=== PATIENT | female | born 1985 | race American Indian/Alaskan Native ===

== ENCOUNTER → 2017-03-04 | Outpatient (CLI) | payer BC ==
[~2017-03-04] MED LIST: IRON PO; MULTTAB PO; VITAMIN B12 PO
[2017-03-08 07:21] LABS: CHLAMYDIA TRACH RNA*** NOT DETECTED (NOT DETECTED); GC (NEIS GONORRHOEAE)RNA** NOT DETECTED (NOT DETECTED)
== END | disposition home or self-care (01) ==
LOC: C.LABSPEC 13:24
PROVIDERS: ATTEND Obstetrics & Gynecology
DX: Z01.419 Encounter for gynecological examination (general) (routine) without abnormal findings (principal)

== ENCOUNTER → 2017-03-04 | Outpatient (CLI) | payer BC | END | disposition home or self-care (01) | LOC: C.PAPS 15:33 | PROVIDERS: ATTEND Obstetrics & Gynecology | DX: Z01.419 Encounter for gynecological examination (general) (routine) without abnormal findings (principal) ==

== ENCOUNTER 2017-03-31 20:17 | Emergency (ER) | payer BC ==
[~2017-03-31] VITALS: Ht 162.6 cm; Wt 132.1 kg
[2017-03-31 20:21] VITALS: TEMP 37.2; Ht 162.6 cm; Wt 132.1 kg
[2017-03-31] MEDS ORDERED: ALBUT/IPRATROP 3MG/0.5MG NEB 3 ML VIAL ONE ×2 (20:28→21:47)
[2017-03-31] MEDS ORDERED: HYDROCODONE/HOMATROPINE SYRUP 5MG/1.5MG 5ML UDP PO STA (20:34)
[2017-03-31] MEDS ORDERED: ALBINS/ NEB ×2 (21:02→21:32)
[2017-03-31] MEDS ORDERED: PRVHFAIN INH ×2 (21:02→21:32)
--- NOTE | 2017-03-31 21:14 | DIAGNOSTIC IMAGING REPORT ---
TWO VIEW CHEST CLINICAL HISTORY: Productive cough. Asthma. FINDINGS: PA and lateral chest radiographs are compared to study dated 04/19/2015. The cardiomediastinal silhouette is unremarkable. There is mild elevation of the right hemidiaphragm. The lungs and pleural spaces are clear. There is no pneumothorax. The bony thorax appears intact. IMPRESSION: No active disease in the chest. Electronically signed by: Nghia Tracy M.D. 03/31/2017 9:13 PM Dictated Date/Time: 03/31/2017 9:13 PM
[2017-03-31 21:20] VITALS: BP 115/76; PULSE 72; O2SAT 98
[2017-03-31] MEDS ORDERED: HYDR5SYP11 PO (21:32)
[2017-03-31] MEDS ORDERED: PRED50TA PO (21:32)
[2017-03-31] MEDS ORDERED: AZITTAB PO (21:32)
--- NOTE | 2017-03-31 21:34 | EMERGENCY ROOM VISIT NOTE ---
ED Visit Note First contact with patient: 20:26 CHIEF COMPLAINT: Cough and shortness of breath 2-3 days HISTORY OF PRESENT ILLNESS: Patient is a 31-year-old female who presents the emergency department accompanied by her fianc for evaluation of a productive cough and shortness of breath. She reports that her symptoms started about a week and half ago, when she developed a cold. She noticed ear pressure, sinus and nasal congestion and a scratchy throat. She subsequently developed a cough. She was seen at a [facility] clinic on the shortly after her symptoms started. Conservative care measures were discussed. Patient reports that she began to develop a harsh, productive cough in the last week. She notes the cough is productive of green sputum. She has albuterol nebulizers which she was doing 2-3 times a day, but ran out of the nebulizers about 2 days ago. She does have a Ventolin inhaler which she has been using, but her symptoms are not improving. She does not have an appointment with her primary care doctor until mid April. Patient reports that she has been ill like this in the past. She has never been hospitalized or intubated for her asthma. She has not tried using any additional medications for her symptoms. REVIEW OF SYSTEMS: Review of systems as per HPI. All other systems reviewed were negative. 10 systems reviewed. PMH: Electronic medical records are reviewed and summarized as above/below. See Problem List. SOCIAL HISTORY: Patient lives at home with her significant other. Nonsmoker. She is employed. PHYSICAL EXAM: Vital Signs: Reviewed Nurse's notes. MENTAL STATUS: Patient is a well-appearing 31-year-old female who is awake and alert and in no acute distress. Vital signs are stable. She does have a harsh cough noted, no conversational dyspnea noted. HEAD: Atraumatic, without temporal or scalp tenderness. EYES: PERRL, EOMI, no discharge or injection. EARS: Tympanic membranes intact, not inflamed, have normal contour. External canals clear. NOSE: Nares patent, turbinates moist without rhinorrhea. MOUTH: Mucous membranes moist, no lesions, tongue and gums appear normal. THROAT: No pharyngeal injection, exudates, or tonsillar hypertrophy. Airway is patent. NECK: Supple, nontender, no lymphadenopathy. HEART: Regular rate and rhythm without murmurs, ectopy, gallops, or rubs. LUNGS: Clear to auscultation and breath sounds equal, no wheezes, rales, or rhonchi. SKIN: Normal. NEUROLOGICAL: Sensory and motor functions grossly intact. Normal gait. EMERGENCY DEPARTMENT COURSE: Patient was given a DuoNeb treatment, prednisone 60 mg orally and Hycodan 10 mL orally. Chest x-ray was obtained and was clear. Patient was reassessed, and had significant improvement in her symptoms. Her shortness of breath had resolved and cough was much improved. The patient has had an upper respiratory illness for about a week which appears to have exacerbated her asthma. She has recently run out of her home medications. On exam, she does have a persistent, harsh cough however no adventitious sounds, and she symptomatically responded well to a nebulizer treatment and Hycodan. She has been intermittently wheezing which she states has been controlled with her inhaler. She is agreeable to a short course of prednisone. She was given refills for her Proventil vials and for her Ventolin inhaler. She was given a prescription for Hycodan to use as needed for cough, and then was also given a prescription for a Z-German if her symptoms do not appear to be clearing within the next 5-7 days, she can fill and take this. Differential diagnoses include URI, other viral illness including influenza, bronchitis, pneumonia, asthma exacerbation, among others. Medication reconciliation: I attest that I have personally reviewed the patient' s current medication list. Blood pressure screening : Patient was found to have normal blood pressure on screening and does not require follow-up. TWO VIEW CHEST CLINICAL HISTORY: Productive cough. Asthma. FINDINGS: PA and lateral chest radiographs are compared to study dated 04/19/2015. The cardiomediastinal silhouette is unremarkable. There is mild elevation of the right hemidiaphragm. The lungs and pleural spaces are clear. There is no pneumothorax. The bony thorax appears intact. IMPRESSION: No active disease in the chest. Problem List Medical Problems: (1) Ankle sprain Status: Resolved (2) Bronchitis Status: Resolved (3) Bronchitis with bronchospasm Status: Resolved (4) Bronchospasm Status: Resolved (5) Lupus Status: Chronic (6) Pneumonia Status: Chronic (7) Unspecified Asthma, Uncomplicated Status: Chronic Current/Historical Medications Scheduled Azithromycin (Zithromax Z-German), 0 PO UD Prednisone (Prednisone), 50 MG PO DAILY Scheduled PRN Albuterol (Ventolin Hfa), 2 PUFFS INH Q4 PRN for SOB/Wheezing Albuterol Sulf (Proventil 0.083% 2.5MG/3ML), 3 ML NEB Q4 PRN for SOB/Wheezing Hydrocodone W/ Homatropine (Hycodan 5/1.5MG 5 Ml), 10 ML PO Q4H PRN for Cough Allergies Coded Allergies: No Known Allergies (Unverified , 07/22/14) Vital Signs Date Time Temp Pulse Resp B/P (MAP) Pulse Ox O2 Delivery O2 Flow Rate FiO2 03/31/17 21:20 72 16 115/76 98 Room Air 03/31/17 20:21 37.2 108 18 132/39 92 Room Air Medications Administered Medications (Trade) Dose Ordered Sig/Ary Route Start Time Stop Time Status Last Admin Dose Admin Albuterol/ Ipratropium (Duoneb) 3 ml STK-MED ONCE .ROUTE 03/31/17 20:28 03/31/17 20:29 DC 03/31/17 20:31 3 ML Prednisone (PredniSONE TAB) 60 mg NOW STAT PO 03/31/17 20:34 03/31/17 20:35 DC 03/31/17 20:39 60 MG Hydrocodone Bit/ Homatropine Methylb (Hycodan Syrup) 10 ml NOW STAT PO 03/31/17 20:34 03/31/17 20:35 DC 03/31/17 20:39 10 ML Departure Information Impression Primary Impression: URI (upper respiratory infection) Additional Impression: Asthmatic bronchitis Prescriptions Azithromycin (ZITHROMAX Z-GERMAN) 250 Mg Tab 0 PO UD, #1 PKT 2 TABS DAY 1, THEN 1 TAB DAILY FOR 4 DAYS Prov: Nubia Garcia PA 03/31/17 Hydrocodone W/ Homatropine (HYCODAN 5/1.5MG 5 ML) 1 Syp Syp 10 ML PO Q4H Y for Cough, #200 ML For Initial Treatment Prov: Nubia Garcia PA 03/31/17 Prednisone (Prednisone) 50 Mg Tab 50 MG PO DAILY for 5 Days, #5 TAB Prov: Nubia Garcia PA 03/31/17 Albuterol (Ventolin Hfa) 60 Puffs/5400 Mcg Aers 2 PUFFS INH Q4 Y for SOB/Wheezing, #1 INHALER Prov: Nubia Garcia PA 03/31/17 Albuterol Sulf (PROVENTIL 0.083% 2.5MG/3ML) 2.5 Mg/3 Ml Nebu 3 ML NEB Q4 Y for SOB/Wheezing, #1 BOX Prov: Nubia Garcia PA 03/31/17 Referrals Adelaida Bagley M.D. (PCP) Patient Instructions [facility] Additional Instructions DO NOT drive, drink alcohol, operate machinery, or perform dangerous activities today. You were given medications in the ER that can affect your ability to safely function or operate a vehicle. Continue Proventil nebulizer treatments every 4 hours while awake for the next 5 -7 days, may switch or interchange with Ventolin inhaler 2 puffs every 4 hours, then resume using as needed. Prednisone 50mg: Once daily until the prescription is finished. It is best to take this earlier in the day as some patients note occasional difficulty falling asleep when taken in the late evening. Ibuprofen(Motrin, Advil) may be used for fever or pain. Use 600mg every six hours as needed. Take with food. Avoid using more than 2400mg in a 24 hour period. Do not use 2400mg per day for more than three consecutive days without physician direction. Prolonged inappropriate use can lead to stomach upset or ulcers. This is available over the counter and typically comes in 200mg tablets. (AND/OR) Acetaminophen(Tylenol) may be used for fever or pain. Use 1000mg every eight hours as needed. Avoid using more than 3000mg in a 24 hour period. This is available over the counter. Hycodan cough syrup: use 5-10 mL's every 46 hours only as needed for severe cough. It is best for use at night since it will cause sedation. This is a narcotic medication. Avoid alcohol, operating machinery or dangerous equipment , working on ladders or roofs, DRIVING, important decision making, or situations where being under the influence may be dangerous. It is recommended to use an [id number]-[id number] stool softener such as Colace, 100mg twice daily while taking this medication to avoid constipation. Read all the package inserts or medication information paperwork provided. If you have any questions or concerns call your primary provider, pharmacist or the ER for assistance. Rest and drink plenty of fluids. Avoid strenuous activity until your symptoms resolve and your breathing returns to normal. Continue current medications. Return to the ER for chest pain, difficulty breathing, persistent fevers, vomiting, worsening of your condition, or as needed. Follow up with your primary care physician as scheduled. If your symptoms have not improved in the next 5-7 days, fill and take the prescription for Azithromycin(Zithromax) 250mg: Take once daily as directed for 5 days. All antibiotics can cause diarrhea. If this occurs and you feel worse or it does not resolve in 1-2 days follow up with your doctor or return to the Emergency Department as this could be signs of serious underlying problems. Any medication can cause an allergic reaction, stop the pills immediately and return to the ER for rash, hives, breathing difficulties, or swelling. Problem Qualifiers
== END 2017-03-31 21:50 | disposition home or self-care (01) ==
LOC: C.EDB 20:18
DX: J06.9 Acute upper respiratory infection, unspecified (principal); J45.909 Unspecified asthma, uncomplicated; L93.0 Discoid lupus erythematosus; Z79.899 Other long term (current) drug therapy

== ENCOUNTER → 2017-04-20 | Outpatient (CLI) | payer OTHER ==
[~2017-04-20] MED LIST changes: +ALBINS/ NEB; -IRON PO; -MULTTAB PO; +PRVHFAIN INH; -VITAMIN B12 PO
--- NOTE | 2017-04-20 12:46 | DIAGNOSTIC IMAGING REPORT ---
MRI OF THE BRAIN WITHOUT CONTRAST CLINICAL HISTORY: Pineal gland cyst COMPARISON STUDY: 12/05/2015 FINDINGS: Sagittal T1, axial diffusion, proton density and T2 weighted axial, coronal FLAIR, and axial T1-weighted images were acquired. There is a stable 14 mm CSF intensity lesion, located adjacent to the posterior aspect of the third ventricle, and abutting or arising from the pineal gland. This has benign characteristics. Axial diffusion-weighted images reveal no evidence of acute or subacute infarction. There is no evidence of ventricular dilatation. Proton density T2-weighted and FLAIR images reveal no significant intraparenchymal signal abnormalities. There are no abnormal flow voids. IMPRESSION: 1. No change from the preceding study. 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 This is not felt to be of acute clinical significance. 2. Otherwise normal MRI of the brain Electronically signed by: Crow Riddle M.D. 04/20/2017 12:44 PM Dictated Date/Time: 04/20/2017 12:36 PM
== END | disposition home or self-care (01) ==
LOC: C.MRI 10:50
PROVIDERS: ATTEND Family Medicine
DX: E34.8 Other specified endocrine disorders (principal)

== ENCOUNTER → 2017-06-29 | Outpatient (CLI) | payer OTHER ==
[~2017-06-29] VITALS: Ht 162.6 cm; Wt 137.2 kg
[2017-06-29 12:47] VITALS: BP 113/65; PULSE 92; Ht 162.6 cm; Wt 137.2 kg
== END | disposition home or self-care (01) ==
LOC: C.NEUR 12:32
PROVIDERS: ATTEND Physician Assistant Medical
DX: R06.81 Apnea, not elsewhere classified (principal); R06.83 Snoring; R53.83 Other fatigue; E66.01 Morbid (severe) obesity due to excess calories; J45.909 Unspecified asthma, uncomplicated; R42 Dizziness and giddiness; J30.2 Other seasonal allergic rhinitis

== ENCOUNTER → 2017-07-31 | Outpatient (CLI) | payer OTHER ==
--- NOTE | 2017-08-01 05:35 | PAP/PSG TECHNICIAN REPORT ---
[facility] Drop Clipper Polysomnogram Report Study name: None Report date: 08/01/2017 Study date: 07/31/2017 Referring Physician: MALKA APONTE M.D. Name: TEMO MENDOZA Interpreting Physician: Nolberto Watson M.D. Date of : 1985 Drop Clipper: Dorita Morales, PSGT. Sex: Female Age: 31 StudyType: PSG Weight: 301 lbs Height: 31 years, Height 5' 4" Neck Circum:16 inches BMI: 51.66 Medications: Advair, Albuterol, Norethindrone, Vit-D3, Venolin, womans multi-vit. Patient History 31 year old female presents for a diagnostic sleep study, she has been told she stops breathing during sleep, snoring and daytime fatigue.Ess = 15, Neck = 16 inches. Parameters Monitored NPSG: E1-M2, E2-M1, Fp1-M2, Fp2-M1, F3-M2, F4-M2, F4-M1, C3-M2, C4-M2, C4-M1, O1-M2, O2-M2, O2-M1, T3-M2, T4-M1, P3-M2, P4-M1, CHIN1, CHIN2, HR, EKG, Legs, PFLOW, SNOR, FLOW, CFLOW, Tidal Volume, THOR, ABDO, SpO2, PLTH, CPRESS, ETCO2 Wave, ETCO2, pH Sleep Architecture Sleep Stages Time at Lights Off 11:03:20 PM STAGES Time (min.) TST (%) Time at Lights On 5:27:20 AM Wake 23.0 -- Total Recording Time (TRT) 384.50 min. N1 12.5 3 Total Sleep Period (TSP) 378.0 min. N2 195.5 54 Total Sleep Time (TST) 361.0min. N3 63.5 18 Awake Time 23.5 min. REM 89.5 25 Wake after Sleep Onset 18.0 min. Sleep Efficiency (SE) 94 % Sleep Onset Latency (OSMIN) 5.0 min. Number of Stage 1 Shifts None Awakenings 11 Stage Changes 47 Number of REM periods 4 REM 89.5 25 REM Latency 62.5 min. NREM 271.5 75 Body Position Analysis Supine Right Left Side Prone Vertical Total Sleep Time (min.) 15.6 301.6 50.1 351.76 0.0 0.0 Total Sleep Time (%) 3% 84% 14% 97 0% N/A% Total Sleep Time REM (min.) 0.0 89.5 0.0 None 0.0 0.0 Total Sleep Time NREM (min.) 9.2 212.1 50.1 None 0.0 0.0 Intermittent Wake (min.) 6.3 10.4 6.3 None 0.0 0.0 Total Sleep Period (%) 4% None None None None None Arousals Myoclonus (PLM) * Events Count Index Events Count Index Spontaneous 42 7 Events Awake (PLMW) 0 0.0 Respiratory 3 0.5 Events Asleep w/ Arousal (PLMA) 0 0.0 PLM 0 0 Events Asleep w/o Arousal (PLMS) 54 9.0 Snoring 9 1 Total Asleep 54 9.0 Total 54 9 Total 54 8 Respiratory Analysis * CA OA MA CH H RERA Total Count 0 0 0 0 30 0 30 Index 0.0 0.0 0.0 0 5.0 0 5.0 Mean Duration 0.0 0.0 0.0 0.00 15.3 0.0 15.3 Longest Duration 0.0 0.0 0.0 0.00 0.0 0.0 32.0 Respiratory Event Summary Total Supine ~Supine Right Left Prone REM NREM Apneas Count 0 0 0 0 0 N/A 0 0 Index 0.0 0 0 0.0 0.0 N/A 0 0 Hypopneas (4% Desat) Count 30 0 30 28 2 N/A 12 18 Index 5.0 0.0 5 5.6 2.4 N/A 8.0 4.0 Apneas & All Hypopneas Count 30 0 30 28 2 N/A 12 18 Index 5.0 0 5 6 2 N/A 8.0 4.0 Respiratory Events (Employment Trainer+All Hyp+RERA) Count 30 0 30 28 2 N/A 12 18 Index 5.0 0 5 5.6 2.4 N/A 8.0 4.0 Respiratory Related Arousal Count 3 0 3 3 0 N/A 3 0 Index 0.5 0 1 1 0 N/A 2 0 Snoring Analysis Supine Right Left Prone REM NREM Total Snore duration 20.1 min Snores count 2 883 46 N/A 69 862 931 Snore mean duration 1.3 Sec Snores index 13 176 55 N/A 46.3 190.5 154.7 TST with snoring (%) 5.6% Desaturation Event Summary: Minimum %SpO2 Event Count Mean/Min/Max Duration(sec.) Desaturation Index % Time In Bed > 90 90 23.5 / 4.8 / 58.3 14.9 95.3 86 - 90 0 N/A 0.0 4.7 81 - 85 0 N/A 0.0 0.0 76 - 80 0 N/A 0.0 0.0 71 - 75 0 N/A 0.0 0.0 66 - 70 0 N/A 0.0 0.0 61 - 65 0 N/A 0.0 0.0 56 - 60 0 N/A 0.0 0.0 51 - 55 0 N/A 0.0 0.0 < 50 0 N/A 0.0 0.0 Total REM NREM Awake <50% 0.0 min. 0.0 min. 0.0 min. 0.0 min. 51 - 60% 0.0 min. 0.0 min. 0.0 min. 0.0 min. 61 - 70% 0.0 min. 0.0 min. 0.0 min. 0.0 min. 71 - 80% 0.0 min. 0.0 min. 0.0 min. 0.0 min. 81 - 90% 18.0 min. 4.7 min. 11.2 min. 2.1 min. 91 - 100% 362.2 min. 84.8 min. 258.6 min. 18.8 min. Average 94 94 94 94 Minimum SpO2 85 85 88 87 Desaturation Event Index 14.1 17.4 14.1 0.0 # Desat. Events below 89% 4 3 1 N/A Time(%) with Saturation below 89% 0.7 0.3 0.2 0.2 Time(min.) with Saturation below 89% 2.6 1.2 0.9 0.6 Time (mins) REM (mins) NREM (mins) % of TST SpO2 Below 90% 31 8 N23 1.8 SpO2 Below 88% 1 0 0 0 Heart Rate Analysis Min (bpm) Max (bpm) Average (bpm) Awake 67 108 89 NREM 72 104 86 REM 74 99 87 Overall 72 104 87 Supplemental O2 Values Minimum O2 level: None Value Start Time End Time Drop Clipper Comments . PSG Study MS. Mendoza slept in the right, left, supine positions. No cardiac arrhythmia or PLM's noted. No bruxism noted. Snoring was noted and scored as a 2 on a scale of 1 through 5. (0=no snoring, 5=snoring loud enough to be heard through a closed door or down the [address] way) Ms. Mendoza awoke to use the restroom zero times during the night. Ms. Mendoza stated, I did not sleep as well as I do when I am in my own bed. The final report will be interpreted and signed by a sleep physician. The completed physician report will then be placed in the patient medical record Therapy (cm H2O) 0 TIB (min.) 384.0 TST (min.) 361.0 Sleep Onset (min.) 5.0 REM Onset From Sleep (min.) 62.5 Sleep Efficiency % 94 Wakefulness (%) 6 Wakefulness (min.) 23.5 NREM 1 (%) 3 NREM 1 (min.) 12.5 NREM 2 (%) 54 NREM 2 (min.) 195.5 NREM 3 (%) 18 NREM 3 (min.) 63.5 REM (%) 25 REM (min.) 89.5 # Arousals 54 Arousal Index 9 # Snore 931 Snore Index 154.7 AHI 5.0 AHI Supine 0 AHI Non-Supine 5 NREM AHI 4.0 REM AHI 8.0 RDI 5.0 # Obstructive Apnea 0 # Central Apnea 0 # Mixed Apnea 0 # Hypopneas 30 RERAs 0 Total Respiratory Events 31 Time Below SpO2 89% (min.) 2.0 Mean NREM SpO2 (%) 94 Mean REM SpO2 (%) 94 Mean Sleep SpO2 (%) 94 Min NREM SpO2 (%) 88 Min REM SpO2 (%) 85 Position Supine (min.) 15.6 Position Non-supine (min.) 351.8 LM Index Sleep 9.0 LM Index NREM 11.0 LM Index REM 2.7 Mean Heart Rate (bpm) 87 Min Heart Rate (bpm) 72
--- NOTE | 2017-08-03 10:10 | POLYSOMNOGRAPH REPORT ---
CLINICAL DATA: A 31-year-old female with a BMI of 51.66 referred by Amelia Voss and myself for a sleep study. She has been told she stops breathing at night and has snoring and daytime fatigue. Her [place] sleepiness score is 15/24. SLEEP ARCHITECTURE: Total sleep period was 378 minutes. Total sleep time was 361 minutes divided between 271.5 minutes of non-REM sleep and 89.5 minutes of REM sleep. Sleep latency was 5 minutes. REM latency was 62.5 minutes. Sleep efficiency was 94%. Wake after sleep onset was 18 minutes. Sleep consisted of stage N1 3%, stage N2 54%, stage N3 18%, and REM 25%. AROUSAL DATA: 54 arousals were recorded for an index of 9 per hour. 42 were spontaneous. PLM DATA: 54 limb movements during sleep were noted for an index of 9 per hour with no arousals. RESPIRATORY DATA: Borderline sleep apnea/hypopnea was noted. The AHI was 5. There were 30 hypopneic episodes with a mean duration of 15.3 seconds. OXIMETRY DATA: Transient hypoxemia was seen. Oxygen bettina was 85% during REM sleep. Mean saturation was 94%. Time below 88% was 1 minute. EKG: Heart rates ranged from 72 to 104 beats per minute. No arrhythmias were noted. MOUNTER SMOKING PIPE'S COMMENTS: The patient slept in the right, left, and supine position. Snoring was mild, rated 2 on a scale of 1-5. IMPRESSION: Borderline sleep apnea/hypopnea with an AHI of 5. RECOMMENDATIONS: The patient may benefit from weight loss, use of an oral appliance, or possibly CPAP usage. Clinical correlation is needed. FENG
== END | disposition home or self-care (01) ==
LOC: C.NEUR 21:00
PROVIDERS: ATTEND Physician Assistant Medical
DX: G47.33 Obstructive sleep apnea (adult) (pediatric) (principal); E66.01 Morbid (severe) obesity due to excess calories; R06.83 Snoring

== ENCOUNTER 2021-10-22 10:06 | Inpatient (IN) ==
--- NOTE | 2021-10-22 10:49 | History & Physical Report ---
Date of Service October 22, 2021 Assessment & Plan (1) Gestational diabetes mellitus (GDM) affecting , antepartum: (2) GBS (group B Streptococcus carrier), +RV culture, currently : (3) : Plan Admit to L&D for induction. Irregular contractions. NST nonreactive, more accelerations or decelerations, continue to monitor. GBS+, start penicillin. will place cervical balloon and start pitocin augmentation of labor. epidural when requested anticipate vaginal History of Present Illness Primary Care Provider: Adelaida Cruz is a 36 y/o female currently at 39 5/7 with an YINA 10/24/21 as determined by LMP who is here after OP appointment with nonreactive nst. BPP was 8/8 but DVP is 2.1 cm. Her was complicated by GDM, AMA, and GBS+. Irregular contractions; + movement; Minimal fluid loss- increased mucus since Wednesday; no bloody show External FHT and external uterine monitors used; Category 2 tracing; mod FHT variability. Had regular appointments with OB. Labs: (03/17/21) Blood type: O+ Antibody screen: Neg Hg: pending (today) Hct: pending (today) WBC: pending (today) Plt: pending (today) Rubella: Immune VDRL/RPR: Nonreactive Gonorrhea: Neg Chlamydia: Neg HIV: Neg HbSAg: Neg GBS: + Other screens: cf/sma/cfDNA low risk--smp Allergies Allergy/AdvReac Type Severity Reaction Status Date / Time No Known Allergies Allergy Verified 10/22/21 08:36 No Known Drug Allergies Allergy Unknown Unknown Uncoded 10/22/21 08:36 Home Medications Medication Instructions Recorded Confirmed Type prenat.vits,arturo,ddj-[id number] 1 tab PO DAILY 03/12/21 10/22/21 History Patient History Medical History (Updated 10/22/21 @ 11:05 by Chary Escobar DO) Anemia HX Asthma GERD (gastroesophageal reflux disease) H/O varicella Hypertriglyceridemia PER RECORDS; PATIENT DENIES Migraine Morbid obesity Sleep apnea NO DEVICE Temporomandibular joint disorder "LOCKED JAW"- NO FURTHER DETAILS Surgical History History of cholecystectomy History of D&C History of esophagogastroduodenoscopy (EGD) History of sleeve gastrectomy 02/2018 Family History Mother Family history of diabetes mellitus Family history of reaction to anesthesia "can not take all anesthesia d/t diabetes and BP" Hypercholesterolemia Hypertension Phlebitis Obstructive sleep apnea Father Family history of diabetes mellitus Grandfather (Maternal) Hypercholesterolemia Hypertension Kidney stone Family/Other Breast cancer Maternal great aunts Social History (Updated 10/22/21 @ 10:23 by Georgia Bell) Smoking Status: Never smoker Second Hand Exposure: No ( smokes, parents smoked); Hx Alcohol Use: No Hx Substance Use: No Preferred Language: Nauruan Communication Ability: Effective Visual Impairment: No Limitations Hearing Ability: Normal Siphon Operator Required: No Beliefs That Will Affect Care: None marital status: marital status details: Reginaldo (32) [phone] Current Living Situation: Spouse Current Living Situation Comment: lives with spouse and 2 dogs. 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 Other Information That Helps Us Care for You: No Feels Safe at Home: Yes Safety Concerns: Feels Safe At This Time Childhood Exposure to Second-Hand Smoke: Yes caffeine: No Dental Care, Regularly: Yes Seatbelt Use: always Sunscreen Use: Yes Do you think of yourself as: straight/heterosexual Gender Identity: Female Assistive Devices: Glasses Review of Systems Denies fever, chills, sweats Denies shortness of breath, difficulty breathing, chest pain, palpitations, chest pressure. Denies breast pain. Denies dysuria. Has had a mild headache since yesterday, no changes in vision. Physical Exam Physical Exam: General: Alert, oriented. No acute distress. Cardiac: Regular rate and rhythm, no murmurs/rubs/gallops. Respiratory: Clear to auscultation bilaterally a/p, no wheezes/rales/rhonchi. No increased work of breathing. Symmetrical chest rise. No respiratory distress. Abdomen: Gravid Lower Extremities: No lower extremity edema or swelling. No deep calf pain. Minal's negative bilaterally Genitourinary: OB Exam Abdomen: + vertex, + estimated weight (7-8 pounds) and + irregular contractions Manual OB Exam: + cervical dilation fingertip, + cervical effacement 50% and + station -2 OB Exam Monitor Tracing: + external FHT monitor used, + external uterine monitor used, + category I and + normal FHT variability Results & Data ([facility]) Vital Signs (Past 12 Hours) Vital Signs Pulse BP 10/22/21 10:17 96 H 132/71 Supervising Physician Co-Signing Physician Notes Resident Physician Supervision Note: I interviewed and examined the patient. Discussed with Dr. Escobar and agree with findings and plan as documented in the note. Any exceptions or clarifications are listed here: [None] Documented By: Keyana Porter MD, FACOG Resident Activity Tracking Resident Involvement: Resident Care Provided Care Provided: OB Delivery (H&P)
[2021-10-22] MEDS ORDERED: OXYTOCIN 30 UNITS/500 ML BAG IV PRN ×2 (11:50)
[2021-10-22] MEDS ORDERED: PENICILLIN G POTASSIUM 6 MU in DEXTROSE 5% 250 ML IV ONE (12:00)
[2021-10-22 12:18] LABS: Hematocrit (blood only) 32.3 % (34.1-44.9); Hemoglobin 10.6 g/dl (12.0-16.0); Mean Corpuscular Hemoglobin 28.7 pg (25.0-34.0); Mean Corpuscular Hgb Conc 32.8 g/dL (32.0-36.0); Mean Corpuscular Volume 87.5 fL (80.0-100.0); Mean Platelet Volume 9.8 fL (9.4-12.3); Platelet Count 324 K/uL (130-400); RDW Coefficient of Variation 15.1 % (11.5-14.5); RDW Standard Deviation 47.9 fL (36.4-46.3); Red Blood Count 3.69 M/uL (3.93-5.22); White Blood Count 9.48 K/ul (4.8-10.8)
[2021-10-22] MEDS: LACTATED RINGER'S 1,000 ML IV PRN ×3 (13:49→23:25)
--- NOTE | 2021-10-22 16:15 | Procedure Note ---
Procedure Note Date of Service October 22, 2021 Note patient presents for IOL because of nonreactive NST and oligohydramnios at 39 weeks with unfavorable cervix. cervical balloon was inserted under direct visualization and balloon filled with 40 cc sterile water. Catheter placedon traction and secured to her left thigh. pitocin augmentation begun- will also start PCN prophylaxis now. Coding CPT Codes [facility] Procedure Codes - 02454 Placement of cervical dilator: 45965 Placement of cervical dilator ([id number]) [facility] Procedure Codes (Charges) [facility] Procedure Codes 62267 Placement of cervical dilator
[2021-10-22] MEDS: PENICILLIN G POTASSIUM 3 MU in DEXTROSE 5% 100 ML IV PRN ×2 (19:31→23:22)
[2021-10-22] MEDS ORDERED: fentaNYL citrate 100 MCG/2 ML VIAL ONE (20:23)
[2021-10-22] MEDS ORDERED: LIDOCAINE 2%/EPINEPHRINE 1:200,000 20 ML SDV ONE (20:23)
[2021-10-22] MEDS ORDERED: ePHEDrine sulfate 50 MG/ML AMP ONE (20:23)
[2021-10-22] MEDS ORDERED: BUPIVACAINE 0.25% 30 ML VIAL ONE (20:23)
[2021-10-22] MEDS ORDERED: SODIUM CHLORIDE 0.9% INJ 10 ML VIAL ONE (20:23)
[2021-10-22] MEDS ORDERED: fentaNYL 2MCG/ML ROPIVACAINE 1.25MG/ML 100 ML BAG EPI ONE (20:24)
[2021-10-22] MEDS ORDERED: ONDANSETRON INJ 2 MG/ML 2 ML VIAL IV PRN (20:48)
[2021-10-22] MEDS ORDERED: diphenhydrAMINE 50 MG/ML VIAL IV PRN (20:48)
[2021-10-22] MEDS ORDERED: fentaNYL 2MCG/ML ROPIVACAINE 1.25MG/ML 100 ML BAG EPI PRN (20:48)
[2021-10-22] MEDS ORDERED: ePHEDrine sulfate 50 MG/ML AMP IV PRN (20:48)
[2021-10-22] MEDS ORDERED: NALBUPHINE HCL INJ 10 MG/ML AMP IV PRN (20:48)
[2021-10-22] MEDS ORDERED: NALOXONE HCL 0.4 MG/1 ML VIAL/CARP IV PRN (20:48)
[2021-10-22] MEDS ORDERED: NALOXONE HCL 1 MG in SODIUM CHLORIDE 0.9% 1000ML 1,000 ML IV PRN (20:48)
--- NOTE | 2021-10-22 20:53 | Anesthesiology Consultation ---
Date of Service October 22, 2021 Assessment & Plan Chart Review Chart Review: Patient NOT seen in Pre Admission Testing and Acceptable Risk for Labor Epidural Consults Requested none ASA ASA3 Proposed Anesthesia Anesthesia Type: Labor Epidural and CSE Risk / Benefits Reviewed With: PT / POA / Parent / Guardian, Accepts Plan and Informed Consent Obtained History Height/Weight Height: 5 ft 4 in Weight: 131.542 kg Allergies Allergy/AdvReac Type Severity Reaction Status Date / Time No Known Allergies Allergy Verified 10/22/21 08:36 No Known Drug Allergies Allergy Unknown Unknown Uncoded 10/22/21 08:36 Medications Home Medications Medication Instructions Recorded Confirmed Last Taken prenat.vits,arturo,bfv-hpdd-clbxr 1 tab PO DAILY 03/12/21 10/22/21 10/21/21 13:00 Active Medications Generic Name Dose Route Start Last Admin Trade Name Freq PRN Reason Stop Dose Admin Lactated Ringer's 1,000 mls @ 125 mls/hr 10/22/21 11:50 10/22/21 20:48 Lr IV 10/24/21 11:49 125 mls/hr .Q8H PRN Infusion L&D Protocol Protocol Oxytocin 30 units in 500 mls @ 10 mls/hr 10/22/21 11:50 10/22/21 19:30 Pitocin IV 10/24/21 11:49 0.6 units/hr .Q24H PRN 10 mls/hr Labor Induction/Augmentation Titration Protocol 0.6 UNITS/HR Penicillin G Potassium 3 mu/ 106 mls @ 100 mls/hr 10/22/21 14:54 10/22/21 19:31 Dextrose IV 11/01/21 14:53 100 mls/hr Q4H PRN Administration GBS(+) Until Delivery NPO Date Last Intake of Fluids: 10/22/21 Time Last Intake of Fluids: 19:00 Date Last Intake of Solids: 10/22/21 Time Last Intake of Solids: 13:00 Past Medical History Medical History Anemia HX Asthma GERD (gastroesophageal reflux disease) Hypertriglyceridemia PER RECORDS; PATIENT DENIES Migraine Morbid obesity Sleep apnea NO DEVICE Temporomandibular joint disorder "LOCKED JAW"- NO FURTHER DETAILS Exercise / Class Metabolic Activity III < 4 Walking/Shop/Light housework Past Family History Family History Mother Family history of diabetes mellitus Family history of reaction to anesthesia "can not take all anesthesia d/t diabetes and BP" Hypercholesterolemia Hypertension Phlebitis Obstructive sleep apnea Father Family history of diabetes mellitus Grandfather (Maternal) Hypercholesterolemia Hypertension Kidney stone Family/Other Breast cancer Maternal great aunts Past Surgical History Surgical History History of cholecystectomy History of D&C History of esophagogastroduodenoscopy (EGD) History of sleeve gastrectomy 02/2018 Past Anesthesia History No Hx of Anesthesia Complications and No Family Hx of Anesthesia Complications History of PONV No Hx of PONV and No Hx of Motion Sickness Social History Smoking Status: Never smoker Hx Alcohol Use: No alcohol intake frequency: holidays/special occasions only Hx Substance Use: No substance use type: does not use Review of Systems no chest pain or sob Physical Exam Vital Signs Last Vital Signs Temp 36.7 C 10/22/21 20:00 Pulse 83 10/22/21 20:46 Resp 18 10/22/21 20:00 BP 126/73 10/22/21 20:00 Pulse Ox 100 10/22/21 20:46 Constitutional + morbidly obese ENMT Mouth: + TMJ abnormality Thyromental Distance: > or= 3.5 Finger Breadths Mallampati Class: II Neck normal visual inspection Respiratory normal respiratory effort Auscultation: lungs clear to auscultation bilaterally Cardiovascular Rate/Rhythm: regular rate and regular rhythm Musculoskeletal Spine: normal cervical ROM Neurologic moves all extremities Psychiatric Orientation: alert and oriented x 3 Testing Laboratory Results 10/22/21 12:04 Blood Type O Positive 10/22/21 12:04 Antibody Screen NEGATIVE 10/22/21 12:04 10/22/21 12:10 POC Glucose 84
[2021-10-23] MEDS: LACTATED RINGER'S 1,000 ML IV PRN ×2 (02:00→10:01)
[2021-10-23] MEDS: PENICILLIN G POTASSIUM 3 MU in DEXTROSE 5% 100 ML IV PRN ×2 (03:47→07:55)
[2021-10-23] MEDS ORDERED: CITRIC ACID/SODIUM CITRATE 15 ML UDC PO SCH (06:00)
[2021-10-23] MEDS ORDERED: fentaNYL citrate 100 MCG/2 ML VIAL ONE (09:25)
[2021-10-23] MEDS ORDERED: LIDOCAINE 2% MPF LOCAL 5 ML VIAL INFIL ONE (09:25)
--- NOTE | 2021-10-23 09:32 | Labor Progress Brief Note ---
Date of Service October 23, 2021 Subjective Patient notes she is feeling pressure and uncomfortable. Assessment & Plan (1) GBS (group B Streptococcus carrier), +RV culture, currently : (2) Prolonged labor antepartum: Plan fetus is occasionally category one, but variables make category two at times. However, baby tolerating well for low fluid. Her cervix has made minimal change since last evening. However, has not really had an adequate contraction until about 6am, pit at 24. Discussed my concern about this. ON my exam, I feel like she has a pretty narrow pelvis and still fairly high. Dr. Koroma thought that the head had come down some. The head is really molding trying to fit through. I have concern that this baby is not going to fit through and expressed this to the patient. My plan is to recheck at 11 and see. That will be 5 hours of adequate contractions. If no significant change, I am going to recommend c/s. They express understanding and are agreeable to the plan. Admission and Anticipated Discharge Date Admission Date: October 22, 2021 Physical Exam Physical Exam: cx--7-8/100/-1, lots of molding toco--q2-3, mvus at or greater than 200 for the most part, pit at 24 efm--140s with min to mod variabiltiy, small , occasional accels, occasional variables mostly with contractions. Results & Data ([facility]) Vital Signs (Past 12 Hours) Vital Signs Temp Pulse Resp BP Pulse Ox 10/23/21 09:18 92 H 100 10/23/21 09:17 94 H 133/81 10/23/21 09:13 88 100 10/23/21 09:08 102 H 100 10/23/21 09:00 20 10/23/21 09:00 36.8 C 20 10/23/21 09:03 87 100 10/23/21 09:02 93 H 126/75 10/23/21 08:58 90 100 10/23/21 08:53 91 H 100 10/23/21 08:30 18 10/23/21 08:30 18 10/23/21 08:48 100 10/23/21 08:48 88 10/23/21 08:48 89 130/72 10/23/21 08:43 85 100 10/23/21 08:38 95 H 100 10/23/21 08:33 100 10/23/21 08:33 87 10/23/21 08:33 84 128/71 10/23/21 08:28 91 H 99 10/23/21 08:23 90 100 10/23/21 08:18 86 129/65 100 10/23/21 08:13 97 H 100 10/23/21 08:00 18 10/23/21 08:00 36.8 C 18 10/23/21 08:08 85 99 10/23/21 08:03 100 10/23/21 08:03 84 10/23/21 08:03 83 130/67 10/23/21 07:58 99 H 100 10/23/21 07:53 105 H 100 10/23/21 07:48 90 100 10/23/21 07:47 96 H 136/72 10/23/21 07:43 88 100 10/23/21 07:38 102 H 99 10/23/21 07:30 18 10/23/21 07:30 18 10/23/21 07:33 90 99 10/23/21 07:31 96 H 117/72 10/23/21 07:28 84 99 10/23/21 07:23 98 H 99 10/23/21 07:18 100 10/23/21 07:18 95 H 10/23/21 07:18 99 H 117/72 10/23/21 07:13 88 100 10/23/21 07:00 36.9 C 10/23/21 07:08 91 H 99 10/23/21 07:03 96 H 100 10/23/21 07:02 85 115/62 10/23/21 07:00 18 10/23/21 07:00 18 10/23/21 06:58 89 99 10/23/21 06:53 90 99 10/23/21 06:48 91 H 99 10/23/21 06:47 86 111/66 10/23/21 06:43 97 H 100 10/23/21 06:41 103 H 93 10/23/21 06:38 78 99 10/23/21 06:33 76 100 10/23/21 06:32 75 111/68 10/23/21 06:30 18 10/23/21 06:30 18 10/23/21 06:28 80 99 10/23/21 06:23 80 99 07/21/22 06:18 77 115/59 L 99 10/23/21 06:00 18 10/23/21 06:00 36.7 C 18 10/23/21 06:13 77 99 10/23/21 06:08 83 99 10/23/21 06:03 89 122/72 100 10/23/21 05:58 77 98 10/23/21 05:53 84 99 10/23/21 05:48 80 99 10/23/21 05:47 85 121/69 10/23/21 05:43 83 99 10/23/21 05:38 82 99 10/23/21 05:30 18 10/23/21 05:30 18 10/23/21 05:33 87 99 10/23/21 05:31 88 121/70 10/23/21 05:28 85 99 10/23/21 05:23 82 96 10/23/21 05:18 83 99 10/23/21 05:16 84 119/66 10/23/21 05:13 84 99 10/23/21 05:08 83 99 10/23/21 05:03 84 98 10/23/21 05:00 18 10/23/21 05:00 18 10/23/21 05:01 82 106/61 10/23/21 04:58 82 99 10/23/21 04:53 83 99 10/23/21 04:48 99 10/23/21 04:48 90 10/23/21 04:48 76 116/65 10/23/21 04:42 82 99 10/23/21 04:37 85 99 10/23/21 04:32 81 114/65 97 10/23/21 04:30 18 10/23/21 04:30 36.7 C 18 10/23/21 04:27 78 100 10/23/21 04:22 83 100 10/23/21 04:17 79 108/64 99 10/23/21 04:12 87 99 10/23/21 04:07 82 100 10/23/21 04:00 18 10/23/21 04:00 18 10/23/21 04:03 78 112/64 10/23/21 04:02 82 100 10/23/21 03:57 77 100 10/23/21 03:52 80 100 10/23/21 03:51 108 H 93 10/23/21 03:48 81 120/55 L 10/23/21 03:47 78 100 10/23/21 03:42 80 100 10/23/21 03:37 92 H 100 10/23/21 03:32 83 99 10/23/21 03:31 81 101/55 L 10/23/21 03:30 18 10/23/21 03:30 18 10/23/21 03:27 75 99 10/23/21 03:22 90 100 10/23/21 03:17 75 100 10/23/21 03:16 68 100/58 L 10/23/21 03:12 72 98 10/23/21 03:07 73 100 10/23/21 03:04 73 99/54 L 10/23/21 03:02 69 100 10/23/21 02:59 78 92 10/23/21 02:57 80 99 10/23/21 02:52 72 98 10/23/21 02:47 76 91/50 L 100 10/23/21 02:41 75 100 10/23/21 02:28 36.9 C 10/23/21 02:36 78 100 10/23/21 02:31 79 100 10/23/21 02:32 75 128/73 10/23/21 02:30 18 10/23/21 02:30 18 10/23/21 02:26 78 100 10/23/21 02:21 94 H 98 10/23/21 02:17 83 139/74 10/23/21 02:16 86 100 10/23/21 02:11 82 100 10/23/21 02:06 86 100 10/23/21 02:00 18 10/23/21 02:00 18 10/23/21 02:03 75 116/62 10/23/21 02:01 70 100 10/23/21 01:56 87 100 10/23/21 01:51 82 100 10/23/21 01:47 70 117/72 10/23/21 01:46 72 100 10/23/21 01:41 75 98 10/23/21 01:36 72 99 10/23/21 01:31 72 99 10/23/21 01:32 73 119/66 10/23/21 01:30 20 10/23/21 01:30 20 10/23/21 01:26 94 H 100 10/23/21 01:21 73 100 10/23/21 01:18 71 128/63 10/23/21 01:16 73 100 10/23/21 01:11 76 100 10/23/21 01:00 18 10/23/21 01:00 18 10/23/21 01:06 78 100 10/23/21 01:01 80 100 10/23/21 01:02 78 106/67 10/23/21 00:56 77 100 10/23/21 00:51 81 100 10/23/21 00:46 77 100 10/23/21 00:47 70 124/71 10/23/21 00:30 18 10/23/21 00:30 37.1 C 18 10/23/21 00:41 76 100 10/23/21 00:36 84 99 10/23/21 00:31 90 97 10/23/21 00:32 90 132/71 10/23/21 00:26 85 98 10/23/21 00:21 96 H 99 10/23/21 00:18 91 H 121/67 10/23/21 00:16 91 H 99 10/23/21 00:11 85 98 10/23/21 00:06 94 H 98 10/23/21 00:01 85 99 10/23/21 00:02 83 120/77 10/23/21 00:00 18 10/23/21 00:00 18 10/22/21 23:56 85 99 10/22/21 23:51 87 98 10/22/21 23:48 81 123/69 10/22/21 23:46 82 99 10/22/21 23:41 84 99 10/22/21 23:36 85 99 10/22/21 23:32 83 119/68 10/22/21 23:31 83 100 10/22/21 23:30 18 10/22/21 23:30 18 10/22/21 23:26 81 100 10/22/21 23:21 70 100 10/22/21 23:22 70 92 10/22/21 23:16 91 H 100 10/22/21 23:17 88 130/74 10/22/21 23:11 79 100 10/22/21 23:00 18 10/22/21 23:00 18 10/22/21 23:06 82 128/72 99 10/22/21 23:01 84 100 10/22/21 22:56 86 99 10/22/21 22:51 80 99 10/22/21 22:46 95 H 114/68 99 10/22/21 22:41 92 H 99 10/22/21 22:30 16 10/22/21 22:30 16 10/22/21 22:36 75 100 10/22/21 22:33 83 110/62 10/22/21 22:31 83 98 10/22/21 22:26 85 99 10/22/21 22:21 96 H 99 10/22/21 22:16 91 H 114/63 99 10/22/21 22:11 91 H 99 10/22/21 22:06 82 99 10/22/21 22:03 94 H 115/72 10/22/21 22:01 20 10/22/21 22:01 81 20 99 10/22/21 21:56 80 98 10/22/21 21:51 85 97 10/22/21 21:47 80 116/62 10/22/21 21:46 79 99 10/22/21 21:41 79 98 10/22/21 21:36 81 99 10/22/21 21:31 87 99 10/22/21 21:30 18 10/22/21 21:30 85 18 110/72 10/22/21 21:26 100 10/22/21 21:26 88 10/22/21 21:26 86 110/63 10/22/21 21:20 20 10/22/21 21:20 20 10/22/21 21:21 78 137/56 L 100 Coding Level of Care Code None Diagnoses GBS (group B Streptococcus carrier), +RV culture, currently O99.820 Prolonged labor antepartum O63.9
--- NOTE | 2021-10-23 09:43 | Communication Note ---
Date of Service: October 23, 2021 Called for pt c/o pain. Dosed existing epidural with 2% lidocaine 5 cc with fentanyl 100 mcg. Subsequently, pt says pain diminished and she is satisfied. Jennifer DIXON.
[2021-10-23] MEDS ORDERED: AZITHROMYCIN 500 MG in DEXTROSE 5% 250 ML IV STA (11:42)
--- NOTE | 2021-10-23 11:42 | Labor Progress Brief Note ---
Date of Service October 23, 2021 Subjective Patient continues to have intermittent discomfort and pressure. Assessment & Plan (1) Prolonged labor antepartum: (2) Failure to progress in labor: Plan No cervical change, plan to proceed with c/s. r/b/se reviewed again and consent signed. d/c pit. Fetus overall reassuring. Admission and Anticipated Discharge Date Admission Date: October 22, 2021 Physical Exam Physical Exam: cx--unchanged with cervical swelling toco--q2-4 min, pit at 24 , has been adequate for the most part but runs of dysfunctional contractions efm--130s with mod variability, small accels, occasional variables with contractions. Results & Data ([facility]) Vital Signs (Past 12 Hours) Vital Signs Temp Pulse Resp BP Pulse Ox 10/23/21 11:36 89 91 10/23/21 11:33 104 H 100 10/23/21 11:32 114 H 145/76 H 10/23/21 11:28 89 100 10/23/21 11:23 96 H 100 10/23/21 11:18 94 H 144/75 H 100 10/23/21 11:13 85 99 10/23/21 11:08 97 H 100 10/23/21 11:03 101 H 100 10/23/21 11:00 18 10/23/21 11:00 36.9 C 18 10/23/21 11:02 88 139/86 10/23/21 10:58 94 H 100 10/23/21 10:53 94 H 100 10/23/21 10:48 93 H 114/64 99 10/23/21 10:43 95 H 100 10/23/21 10:30 18 10/23/21 10:30 18 10/23/21 10:38 84 99 10/23/21 10:33 80 99 10/23/21 10:32 84 136/83 10/23/21 10:28 104 H 100 10/23/21 10:23 89 100 10/23/21 10:18 84 127/78 100 10/23/21 10:13 85 99 10/23/21 10:00 18 10/23/21 10:00 37.1 C 18 10/23/21 10:08 81 100 10/23/21 10:03 101 H 95 10/23/21 10:02 100 H 116/62 10/23/21 09:58 92 H 100 07/21/22 09:53 96 H 100 10/23/21 09:48 103 H 137/77 100 10/23/21 09:43 105 H 100 10/23/21 09:38 96 H 100 10/23/21 09:33 95 H 100 10/23/21 09:32 89 138/82 10/23/21 09:28 99 H 100 10/23/21 09:23 92 H 100 10/23/21 09:18 92 H 100 10/23/21 09:17 94 H 133/81 10/23/21 09:13 88 100 10/23/21 09:08 102 H 100 10/23/21 09:00 20 10/23/21 09:00 36.8 C 20 10/23/21 09:03 87 100 10/23/21 09:02 93 H 126/75 10/23/21 08:58 90 100 10/23/21 08:53 91 H 100 10/23/21 08:30 18 10/23/21 08:30 18 10/23/21 08:48 100 10/23/21 08:48 88 10/23/21 08:48 89 130/72 10/23/21 08:43 85 100 10/23/21 08:38 95 H 100 10/23/21 08:33 100 10/23/21 08:33 87 10/23/21 08:33 84 128/71 10/23/21 08:28 91 H 99 10/23/21 08:23 90 100 10/23/21 08:18 86 129/65 100 10/23/21 08:13 97 H 100 10/23/21 08:00 18 10/23/21 08:00 36.8 C 18 10/23/21 08:08 85 99 10/23/21 08:03 100 10/23/21 08:03 84 10/23/21 08:03 83 130/67 10/23/21 07:58 99 H 100 10/23/21 07:53 105 H 100 10/23/21 07:48 90 100 10/23/21 07:47 96 H 136/72 10/23/21 07:43 88 100 10/23/21 07:38 102 H 99 10/23/21 07:30 18 10/23/21 07:30 18 10/23/21 07:33 90 99 10/23/21 07:31 96 H 117/72 10/23/21 07:28 84 99 10/23/21 07:23 98 H 99 10/23/21 07:18 100 10/23/21 07:18 95 H 10/23/21 07:18 99 H 117/72 10/23/21 07:13 88 100 10/23/21 07:00 36.9 C 10/23/21 07:08 91 H 99 10/23/21 07:03 96 H 100 10/23/21 07:02 85 115/62 10/23/21 07:00 18 10/23/21 07:00 18 10/23/21 06:58 89 99 10/23/21 06:53 90 99 10/23/21 06:48 91 H 99 10/23/21 06:47 86 111/66 10/23/21 06:43 97 H 100 10/23/21 06:41 103 H 93 10/23/21 06:38 78 99 10/23/21 06:33 76 100 10/23/21 06:32 75 111/68 10/23/21 06:30 18 10/23/21 06:30 18 10/23/21 06:28 80 99 10/23/21 06:23 80 99 10/23/21 06:18 77 115/59 L 99 10/23/21 06:00 18 10/23/21 06:00 36.7 C 18 10/23/21 06:13 77 99 10/23/21 06:08 83 99 10/23/21 06:03 89 122/72 100 10/23/21 05:58 77 98 10/23/21 05:53 84 99 10/23/21 05:48 80 99 10/23/21 05:47 85 121/69 10/23/21 05:43 83 99 10/23/21 05:38 82 99 10/23/21 05:30 18 10/23/21 05:30 18 10/23/21 05:33 87 99 10/23/21 05:31 88 121/70 10/23/21 05:28 85 99 10/23/21 05:23 82 96 10/23/21 05:18 83 99 10/23/21 05:16 84 119/66 10/23/21 05:13 84 99 10/23/21 05:08 83 99 10/23/21 05:03 84 98 10/23/21 05:00 18 10/23/21 05:00 18 10/23/21 05:01 82 106/61 10/23/21 04:58 82 99 10/23/21 04:53 83 99 10/23/21 04:48 99 10/23/21 04:48 90 10/23/21 04:48 76 116/65 10/23/21 04:42 82 99 10/23/21 04:37 85 99 10/23/21 04:32 81 114/65 97 10/23/21 04:30 18 10/23/21 04:30 36.7 C 18 10/23/21 04:27 78 100 10/23/21 04:22 83 100 10/23/21 04:17 79 108/64 99 10/23/21 04:12 87 99 10/23/21 04:07 82 100 10/23/21 04:00 18 10/23/21 04:00 18 10/23/21 04:03 78 112/64 10/23/21 04:02 82 100 10/23/21 03:57 77 100 10/23/21 03:52 80 100 10/23/21 03:51 108 H 93 10/23/21 03:48 81 120/55 L 10/23/21 03:47 78 100 10/23/21 03:42 80 100 10/23/21 03:37 92 H 100 10/23/21 03:32 83 99 10/23/21 03:31 81 101/55 L 10/23/21 03:30 18 10/23/21 03:30 18 10/23/21 03:27 75 99 10/23/21 03:22 90 100 10/23/21 03:17 75 100 10/23/21 03:16 68 100/58 L 10/23/21 03:12 72 98 10/23/21 03:07 73 100 10/23/21 03:04 73 99/54 L 10/23/21 03:02 69 100 10/23/21 02:59 78 92 10/23/21 02:57 80 99 10/23/21 02:52 72 98 10/23/21 02:47 76 91/50 L 100 10/23/21 02:41 75 100 10/23/21 02:28 36.9 C 10/23/21 02:36 78 100 10/23/21 02:31 79 100 10/23/21 02:32 75 128/73 10/23/21 02:30 18 10/23/21 02:30 18 10/23/21 02:26 78 100 10/23/21 02:21 94 H 98 10/23/21 02:17 83 139/74 10/23/21 02:16 86 100 10/23/21 02:11 82 100 10/23/21 02:06 86 100 10/23/21 02:00 18 10/23/21 02:00 18 10/23/21 02:03 75 116/62 10/23/21 02:01 70 100 10/23/21 01:56 87 100 10/23/21 01:51 82 100 10/23/21 01:47 70 117/72 10/23/21 01:46 72 100 10/23/21 01:41 75 98 10/23/21 01:36 72 99 10/23/21 01:31 72 99 10/23/21 01:32 73 119/66 10/23/21 01:30 20 10/23/21 01:30 20 10/23/21 01:26 94 H 100 10/23/21 01:21 73 100 10/23/21 01:18 71 128/63 10/23/21 01:16 73 100 10/23/21 01:11 76 100 10/23/21 01:00 18 10/23/21 01:00 18 10/23/21 01:06 78 100 10/23/21 01:01 80 100 10/23/21 01:02 78 106/67 10/23/21 00:56 77 100 10/23/21 00:51 81 100 10/23/21 00:46 77 100 10/23/21 00:47 70 124/71 10/23/21 00:30 18 10/23/21 00:30 37.1 C 18 10/23/21 00:41 76 100 10/23/21 00:36 84 99 10/23/21 00:31 90 97 10/23/21 00:32 90 132/71 10/23/21 00:26 85 98 10/23/21 00:21 96 H 99 10/23/21 00:18 91 H 121/67 10/23/21 00:16 91 H 99 10/23/21 00:11 85 98 10/23/21 00:06 94 H 98 10/23/21 00:01 85 99 10/23/21 00:02 83 120/77 10/23/21 00:00 18 10/23/21 00:00 18 10/22/21 23:56 85 99 10/22/21 23:51 87 98 10/22/21 23:48 81 123/69 10/22/21 23:46 82 99 10/22/21 23:41 84 99 Coding Level of Care Code None Diagnoses Prolonged labor antepartum O63.9 Failure to progress in labor O62.2
[2021-10-23] MEDS ORDERED: LIDOCAINE 2%/EPINEPHRINE 1:200,000 20 ML SDV ONE ×7 (12:19→13:15)
[2021-10-23] MEDS ORDERED: MoRPHine SULFATE PF 1 MG/ML 10 ML AMP/VIAL ONE (12:19)
[2021-10-23] MEDS ORDERED: ONDANSETRON INJ 2 MG/ML 2 ML VIAL ONE (12:49)
[2021-10-23] MEDS ORDERED: miSOPROStoL 200 MCG TAB PR ONE (12:53)
[2021-10-23] MEDS ORDERED: ONDANSETRON INJ 2 MG/ML 2 ML VIAL IV PRN (13:33)
[2021-10-23] MEDS ORDERED: DIPHTHERIA/TETANUS/PERTUSSIS 0.5 ML SYR/VIAL IM ONE (13:33)
[2021-10-23] MEDS ORDERED: BENZOCAINE 20% AER SPR 82.5 GM CAN EXT PRN (13:33)
[2021-10-23] MEDS ORDERED: MEPERIDINE HCL 50 MG/ML CARP IV PRN (13:33)
[2021-10-23] MEDS ORDERED: diphenhydrAMINE Capsule 25 MG CAP PO PRN (13:33)
[2021-10-23] MEDS ORDERED: diphenhydrAMINE 50 MG/ML VIAL IV PRN (13:33)
[2021-10-23] MEDS ORDERED: SENNA 8.6 MG TAB PO PRN (13:33)
[2021-10-23] MEDS ORDERED: HYDROCORTISONE ACETATE 25 MG SUPP PR PRN (13:33)
[2021-10-23] MEDS ORDERED: KETOROLAC 30 MG/ML VIAL IV PRN (13:33)
[2021-10-23] MEDS ORDERED: MAGNESIUM HYDROXIDE SUSP 30 ML UDC PO PRN (13:33)
[2021-10-23] MEDS ORDERED: PROMETHAZINE HCL 25 MG in SODIUM CHLORIDE 0.9% 50 ML IV PRN (13:33)
[2021-10-23] MEDS ORDERED: PHENYLEPHRINE 100MCG/ML 5ML SYR ONE (13:39)
--- NOTE | 2021-10-23 13:40 | Operative Report ---
PG Post Operative Report Pre & Post Diagnosis Operation Date: 10/23/21 12:30 Pre-Op Diagnosis: 1. Failure to Progress 2. at 39 weeks 3. oligo 4. gdm Post-Op Diagnosis: Same I identified the patient and participated in the time-out.: Yes Procedure Operation Date: 10/23/21 12:30 Actual Procedures p primary low transverse Section in LD; Primary lower uterine transverse Section for the of a live girl at 1246(Bilateral) - Sherrie Jefferson MD, FACOG Surgeon Sherrie Jefferson MD, FACOG [employer] Customer [employer] Agent Dr. Pandey Estimated Blood Loss 1,000 Findings Consistent with Post-Op Diagnosis viable in op presentation, caput on right side of scalp, apgars 8/9 nl appearing uterus, nl right tube and ovary, streak left ovary Fluids 1250cc Specimens none Drains caro Anesthesia Type Labor Epidural Disposition Accompanied Patient To Recovery: Yes Disposition: L&D Indications Patient is a 36yohf diagnosed with oligo at 39 week visit. Was induced and got to 7 cm dilated and then despite adequate contractions with iupc she made no further progress Description of Procedure The patient was taken to the operating room where she was identified verbally and by bracelet. She was seated on the operating table where a epidural anesthetic was dosed by anesthesia. She was then placed in the supine position with a leftward tilt. A Caro catheter had been placed sterilely. the patient was prepped and draped in a normal standard fashion. the anesthetic was tested and found to be adequate. A time-out was held, identifying correct patient, procedure, positioning and preoperative antibiotics. There were no concerns. A Pfannenstiel skin incision was made with a knife and taken down to the underlying layer of fascia with the knife and Bovie electrocautery. Bleeding was attended to with the Bovie. The fascia was incised in the midline with the knife and taken out laterally with scissors. The superior edge of the fascial incision was grasped, elevated and the underlying layer of rectus muscle was taken off bluntly and with scissors. In a similar fashion, the inferior edge of the fascial incision was grasped, elevated and the underlying layer of rectus muscle was taken off bluntly and with scissors. The muscles were bluntly in the midline. The peritoneum was entered bluntly. The incision was then stretched. The bladder blade was placed. The vesicouterine peritoneum was identified, entered with scissors and taken out laterally with scissors. The bladder flap was created digitally A hysterotomy incision was scored with a knife and the incision was stretched superiorly and inferiorly with the gravure press operator's fingers. Thin meconium was noted. The operators hand was placed into the incision and the head was delivered atraumatically. There was a large amount of cord up around the neck, but No nuchal cord. The nose and mouth were bulb suctioned. the rest of the infant was then delivered without difficulty. The nose and mouth were again bulb suctioned. The cord was clamped and cut and the was then handed off to the awaiting registered public surveyor for drying and attention. Cord blood and segment were obtained. The placenta was Manually extracted. The uterus was exteriorized and cleared of all clot and debris with moistened laparotomy sponges. The hysterotomy incision was repaired in two layers, the first in a running locked layer, the second in an imbricating layer. Hemostasis was noted to be good. Posterior cul-de-sac was irrigated and cleared of all clot and debris. The hysterotomy incision was again inspected and one stitch was needed. the uterus was reinteriorized. Hysterotomy incision was again inspected and found to be hemostatic. Joo was placed on the left side of the incision. Hemostasis was again good. Rectus muscles were reapproximated with several interrupted stitches of 0 Vicryl. The fascia was then reapproximated with 0 Vicryl starting at the edges and meeting in the midline. The subcuticular tissues were copiously irrigated, reapproximated with 2-0 plain gut suture and bleeding was attended to with cautery. The skin was then closed with 4-0 Vicryl in a subcuticular fashion. All sponge, lap and needle counts were correct x 2. At the end of the procedure 800mcg cytotec placed rectally. The vidya was then cleared of about 300cc of clot by the gravure press operator. Bleeding was then appropriate at that point. I attest to the content of the Intraoperative Record and any orders documented therein. Any exceptions are noted below. OB Procedure Charges [id number]
[2021-10-23] MEDS ORDERED: LACTATED RINGER'S 1,000 ML IV SCH (13:45)
[2021-10-23 13:58] LABS: Hematocrit (blood only) 32.7 % (34.1-44.9); Hemoglobin 10.8 g/dl (12.0-16.0); Mean Corpuscular Hemoglobin 28.8 pg (25.0-34.0); Mean Corpuscular Volume 87.2 fL (80.0-100.0); Mean Platelet Volume 9.9 fL (9.4-12.3); Platelet Count 278 K/uL (130-400); RDW Coefficient of Variation 14.9 % (11.5-14.5); RDW Standard Deviation 47.3 fL (36.4-46.3); Red Blood Count 3.75 M/uL (3.93-5.22)
--- NOTE | 2021-10-23 15:00 | Anesthesia Procedure Note ---
Date of Service October 23, 2021 Anesthesia Post Epidural Note Vital Signs Vital Signs: Temp Pulse Resp BP Pulse Ox 37.1 C 105 H 17 117/58 L 98 10/23/21 13:29 10/23/21 14:54 10/23/21 14:30 10/23/21 14:30 10/23/21 14:54 Pain Intensity Bilateral Pelvic: Pain Intensity: 4 Notes Mental Status: alert / awake / arousable Nausea / Vomiting: adequately controlled Pain: adequately controlled Airway Patency, RR, SpO2: stable & adequate BP & HR: stable & adequate Hydration State: stable & adequate Neuraxial Anesthesia: was administered and sensory block is resolving Anesthetic Complications: no major complications apparent and Pt Satisfied with anesthetic care Epidural: Removed without complications and With tip intact
--- NOTE | 2021-10-23 15:00 | Anesthesiology Progress Note ---
Date of Service October 23, 2021 Anesthesia Post Procedure Vital Signs Vital Signs: Temp Pulse Resp BP Pulse Ox 10/23/21 14:30 17 10/23/21 14:19 18 10/23/21 14:09 18 10/23/21 13:59 18 10/23/21 13:49 18 10/23/21 13:39 20 10/23/21 13:29 37.1 C 20 10/23/21 14:54 105 H 98 10/23/21 14:49 107 H 99 10/23/21 14:44 98 H 98 10/23/21 14:39 101 H 98 10/23/21 14:34 105 H 98 10/23/21 14:29 93 H 99 10/23/21 14:30 96 H 117/58 L 10/23/21 14:24 94 H 98 10/23/21 14:19 94 H 121/57 L 99 10/23/21 14:14 99 H 100 10/23/21 14:09 96 H 123/58 L 100 10/23/21 14:04 87 96 10/23/21 13:59 92 H 100 10/23/21 14:00 90 120/59 L 10/23/21 13:54 92 H 97 10/23/21 13:52 86 137/63 10/23/21 13:49 92 H 100 10/23/21 13:44 97 H 100 10/23/21 13:39 92 H 99 10/23/21 13:40 90 137/69 10/23/21 13:34 97 H 96 10/23/21 13:32 87 93 10/23/21 13:29 90 132/73 100 10/23/21 12:18 94 H 99 10/23/21 12:16 97 H 148/70 H 10/23/21 12:13 105 H 98 10/23/21 12:08 97 H 100 10/23/21 12:03 94 H 100 10/23/21 12:01 96 H 147/70 H 10/23/21 11:30 20 10/23/21 11:30 20 10/23/21 11:58 93 H 100 10/23/21 11:53 91 H 100 10/23/21 11:48 98 H 100 10/23/21 11:47 90 144/78 H 10/23/21 11:43 101 H 100 10/23/21 11:38 101 H 100 10/23/21 11:36 89 91 10/23/21 11:33 104 H 100 10/23/21 11:32 114 H 145/76 H 10/23/21 11:28 89 100 10/23/21 11:23 96 H 100 10/23/21 11:18 94 H 144/75 H 100 10/23/21 11:13 85 99 10/23/21 11:08 97 H 100 10/23/21 11:03 101 H 100 10/23/21 11:00 18 10/23/21 11:00 36.9 C 18 10/23/21 11:02 88 139/86 10/23/21 10:58 94 H 100 10/23/21 10:53 94 H 100 10/23/21 10:48 93 H 114/64 99 10/23/21 10:43 95 H 100 10/23/21 10:30 18 10/23/21 10:30 18 10/23/21 10:38 84 99 10/23/21 10:33 80 99 10/23/21 10:32 84 136/83 10/23/21 10:28 104 H 100 10/23/21 10:23 89 100 10/23/21 10:18 84 127/78 100 10/23/21 10:13 85 99 10/23/21 10:00 18 10/23/21 10:00 37.1 C 18 10/23/21 10:08 81 100 10/23/21 10:03 101 H 95 10/23/21 10:02 100 H 116/62 10/23/21 09:58 92 H 100 10/23/21 09:53 96 H 100 10/23/21 09:48 103 H 137/77 100 10/23/21 09:43 105 H 100 10/23/21 09:38 96 H 100 10/23/21 09:33 95 H 100 10/23/21 09:32 89 138/82 10/23/21 09:28 99 H 100 10/23/21 09:23 92 H 100 10/23/21 09:18 92 H 100 10/23/21 09:17 94 H 133/81 10/23/21 09:13 88 100 10/23/21 09:08 102 H 100 10/23/21 09:00 20 10/23/21 09:00 36.8 C 20 10/23/21 09:03 87 100 10/23/21 09:02 93 H 126/75 10/23/21 08:58 90 100 10/23/21 08:53 91 H 100 10/23/21 08:30 18 10/23/21 08:30 18 10/23/21 08:48 100 10/23/21 08:48 88 10/23/21 08:48 89 130/72 10/23/21 08:43 85 100 10/23/21 08:38 95 H 100 10/23/21 08:33 100 10/23/21 08:33 87 10/23/21 08:33 84 128/71 10/23/21 08:28 91 H 99 10/23/21 08:23 90 100 10/23/21 08:18 86 129/65 100 10/23/21 08:13 97 H 100 10/23/21 08:00 18 10/23/21 08:00 36.8 C 18 10/23/21 08:08 85 99 10/23/21 08:03 100 10/23/21 08:03 84 10/23/21 08:03 83 130/67 10/23/21 07:58 99 H 100 10/23/21 07:53 105 H 100 10/23/21 07:48 90 100 10/23/21 07:47 96 H 136/72 10/23/21 07:43 88 100 10/23/21 07:38 102 H 99 10/23/21 07:30 18 10/23/21 07:30 18 10/23/21 07:33 90 99 10/23/21 07:31 96 H 117/72 10/23/21 07:28 84 99 10/23/21 07:23 98 H 99 10/23/21 07:18 100 10/23/21 07:18 95 H 10/23/21 07:18 99 H 117/72 10/23/21 07:13 88 100 10/23/21 07:00 36.9 C 10/23/21 07:08 91 H 99 10/23/21 07:03 96 H 100 10/23/21 07:02 85 115/62 10/23/21 07:00 18 10/23/21 07:00 18 10/23/21 06:58 89 99 10/23/21 06:53 90 99 10/23/21 06:48 91 H 99 10/23/21 06:47 86 111/66 10/23/21 06:43 97 H 100 10/23/21 06:41 103 H 93 10/23/21 06:38 78 99 10/23/21 06:33 76 100 10/23/21 06:32 75 111/68 10/23/21 06:30 18 10/23/21 06:30 18 10/23/21 06:28 80 99 10/23/21 06:23 80 99 10/23/21 06:18 77 115/59 L 99 10/23/21 06:00 18 10/23/21 06:00 36.7 C 18 10/23/21 06:13 77 99 10/23/21 06:08 83 99 10/23/21 06:03 89 122/72 100 10/23/21 05:58 77 98 10/23/21 05:53 84 99 10/23/21 05:48 80 99 10/23/21 05:47 85 121/69 10/23/21 05:43 83 99 10/23/21 05:38 82 99 10/23/21 05:30 18 10/23/21 05:30 18 10/23/21 05:33 87 99 10/23/21 05:31 88 121/70 10/23/21 05:28 85 99 10/23/21 05:23 82 96 10/23/21 05:18 83 99 10/23/21 05:16 84 119/66 10/23/21 05:13 84 99 10/23/21 05:08 83 99 10/23/21 05:03 84 98 10/23/21 05:00 18 10/23/21 05:00 18 10/23/21 05:01 82 106/61 10/23/21 04:58 82 99 10/23/21 04:53 83 99 10/23/21 04:48 99 10/23/21 04:48 90 10/23/21 04:48 76 116/65 10/23/21 04:42 82 99 10/23/21 04:37 85 99 10/23/21 04:32 81 114/65 97 10/23/21 04:30 18 10/23/21 04:30 36.7 C 18 10/23/21 04:27 78 100 10/23/21 04:22 83 100 10/23/21 04:17 79 108/64 99 10/23/21 04:12 87 99 10/23/21 04:07 82 100 10/23/21 04:00 18 10/23/21 04:00 18 10/23/21 04:03 78 112/64 10/23/21 04:02 82 100 10/23/21 03:57 77 100 10/23/21 03:52 80 100 10/23/21 03:51 108 H 93 10/23/21 03:48 81 120/55 L 10/23/21 03:47 78 100 10/23/21 03:42 80 100 10/23/21 03:37 92 H 100 10/23/21 03:32 83 99 10/23/21 03:31 81 101/55 L 10/23/21 03:30 18 10/23/21 03:30 18 10/23/21 03:27 75 99 10/23/21 03:22 90 100 10/23/21 03:17 75 100 10/23/21 03:16 68 100/58 L 10/23/21 03:12 72 98 10/23/21 03:07 73 100 10/23/21 03:04 73 99/54 L 10/23/21 03:02 69 100 10/23/21 02:59 78 92 10/23/21 02:57 80 99 10/23/21 02:52 72 98 10/23/21 02:47 76 91/50 L 100 10/23/21 02:41 75 100 10/23/21 02:28 36.9 C 10/23/21 02:36 78 100 10/23/21 02:31 79 100 10/23/21 02:32 75 128/73 10/23/21 02:30 18 10/23/21 02:30 18 10/23/21 02:26 78 100 10/23/21 02:21 94 H 98 10/23/21 02:17 83 139/74 10/23/21 02:16 86 100 10/23/21 02:11 82 100 10/23/21 02:06 86 100 10/23/21 02:00 18 10/23/21 02:00 18 07/21/22 02:03 75 116/62 10/23/21 02:01 70 100 10/23/21 01:56 87 100 10/23/21 01:51 82 100 10/23/21 01:47 70 117/72 10/23/21 01:46 72 100 10/23/21 01:41 75 98 10/23/21 01:36 72 99 10/23/21 01:31 72 99 10/23/21 01:32 73 119/66 10/23/21 01:30 20 10/23/21 01:30 20 10/23/21 01:26 94 H 100 10/23/21 01:21 73 100 10/23/21 01:18 71 128/63 10/23/21 01:16 73 100 10/23/21 01:11 76 100 10/23/21 01:00 18 10/23/21 01:00 18 10/23/21 01:06 78 100 10/23/21 01:01 80 100 10/23/21 01:02 78 106/67 10/23/21 00:56 77 100 10/23/21 00:51 81 100 10/23/21 00:46 77 100 10/23/21 00:47 70 124/71 10/23/21 00:30 18 10/23/21 00:30 37.1 C 18 10/23/21 00:41 76 100 10/23/21 00:36 84 99 10/23/21 00:31 90 97 10/23/21 00:32 90 132/71 10/23/21 00:26 85 98 10/23/21 00:21 96 H 99 10/23/21 00:18 91 H 121/67 10/23/21 00:16 91 H 99 10/23/21 00:11 85 98 10/23/21 00:06 94 H 98 10/23/21 00:01 85 99 10/23/21 00:02 83 120/77 10/23/21 00:00 18 10/23/21 00:00 18 10/22/21 23:56 85 99 10/22/21 23:51 87 98 10/22/21 23:48 81 123/69 10/22/21 23:46 82 99 10/22/21 23:41 84 99 10/22/21 23:36 85 99 10/22/21 23:32 83 119/68 10/22/21 23:31 83 100 10/22/21 23:30 18 10/22/21 23:30 18 10/22/21 23:26 81 100 10/22/21 23:21 70 100 10/22/21 23:22 70 92 10/22/21 23:16 91 H 100 10/22/21 23:17 88 130/74 10/22/21 23:11 79 100 10/22/21 23:00 18 10/22/21 23:00 18 10/22/21 23:06 82 128/72 99 10/22/21 23:01 84 100 10/22/21 22:56 86 99 10/22/21 22:51 80 99 10/22/21 22:46 95 H 114/68 99 10/22/21 22:41 92 H 99 10/22/21 22:30 16 10/22/21 22:30 16 10/22/21 22:36 75 100 10/22/21 22:33 83 110/62 10/22/21 22:31 83 98 10/22/21 22:26 85 99 10/22/21 22:21 96 H 99 10/22/21 22:16 91 H 114/63 99 10/22/21 22:11 91 H 99 10/22/21 22:06 82 99 10/22/21 22:03 94 H 115/72 10/22/21 22:01 20 10/22/21 22:01 81 20 99 10/22/21 21:56 80 98 10/22/21 21:51 85 97 10/22/21 21:47 80 116/62 2022 21:46 79 99 22 21:41 79 98 2022 21:36 81 99 22 21:31 87 99 10/22/21 21:30 18 10/22/21 21:30 85 18 110/72 10/22/21 21:26 100 22 21:26 88 22 21:26 86 110/63 2022 21:15 18 2022 21:15 18 10/22/21 21:20 20 10/22/21 21:20 20 10/22/21 21:21 78 137/56 L 100 10/22/21 21:16 84 100 10/22/21 21:14 90 114/62 10/22/21 21:12 83 121/61 10/22/21 21:11 78 100 10/22/21 21:10 87 18 124/64 10/22/21 21:09 80 111/72 10/22/21 21:06 36.7 C 85 18 100 10/22/21 21:07 97 H 92 10/22/21 21:05 85 145/68 H 10/22/21 21:01 89 98 10/22/21 21:02 86 88 L 10/22/21 20:56 103 H 100 10/22/21 20:51 84 100 10/22/21 20:46 83 100 10/22/21 20:00 36.7 C 90 18 126/73 10/22/21 18:57 36.9 C 10/22/21 18:59 88 133/74 10/22/21 18:42 93 H 112/69 10/22/21 17:43 85 121/71 10/22/21 16:27 82 138/63 10/22/21 15:45 91 H 120/85 Pain Intensity Bilateral Pelvic: Pain Intensity: 4 Transfer of Care Handoff Completed per policy Notes Mental Status: alert / awake / arousable and participated in evaluation Nausea / Vomiting: adequately controlled Pain: adequately controlled Airway Patency, RR, SpO2: stable & adequate BP & HR: stable & adequate Hydration State: stable & adequate Neuraxial Anesthesia: was administered and sensory block is resolving Anesthetic Complications: no major complications apparent and Pt Satisfied with anesthetic care
[2021-10-23] MEDS: OXYTOCIN 30 UNITS in LACTATED RINGER'S 1,000 ML IV SCH (16:22)
[2021-10-23] MEDS: SIMETHICONE 80 MG CHEW PO SCH ×2 (17:00→20:40)
[2021-10-23] MEDS: DOCUSATE SODIUM 100 MG CAP PO SCH (20:41)
[2021-10-24] MEDS: OXYTOCIN 30 UNITS in LACTATED RINGER'S 1,000 ML IV SCH (00:30)
[2021-10-24] MEDS ORDERED: NALOXONE HCL 0.4 MG/1 ML VIAL/CARP IV PRN (04:13)
[2021-10-24] MEDS ORDERED: diphenhydrAMINE 50 MG/ML VIAL IV PRN (04:13)
[2021-10-24] MEDS ORDERED: NALOXONE HCL 1 MG in SODIUM CHLORIDE 0.9% 1000ML 1,000 ML IV PRN (04:13)
[2021-10-24] MEDS ORDERED: NALBUPHINE HCL INJ 10 MG/ML AMP IV PRN (04:13)
[2021-10-24] MEDS ORDERED: METOCLOPRAMIDE HCL 10 MG in SODIUM CHLORIDE 0.9% 50 ML IV PRN (04:13)
[2021-10-24] MEDS ORDERED: ONDANSETRON INJ 2 MG/ML 2 ML VIAL IV PRN (04:13)
[2021-10-24] MEDS ORDERED: PROMETHAZINE HCL 25 MG in SODIUM CHLORIDE 0.9% 50 ML IV PRN (04:13)
[2021-10-24] MEDS ORDERED: NALOXONE HCL 0.08 MG in SYRINGE 1.8 ML IV PRN (04:13)
[2021-10-24] MEDS ORDERED: LACTATED RINGER'S 500 ML IV PRN (04:13)
[2021-10-24] MEDS ORDERED: MoRPHine SULFATE PF 1 MG/ML 10 ML AMP/VIAL INT SPINAL ONE (04:13)
[2021-10-24] MEDS ORDERED: HYDROmorphone INJ 0.5 MG/0.5 ML SYR IV PRN (04:13)
[2021-10-24] MEDS ORDERED: KETOROLAC 30 MG/ML VIAL IV PRN (04:13)
[2021-10-24] MEDS ORDERED: ePHEDrine sulfate 50 MG/ML AMP IV PRN (04:13)
[2021-10-24] MEDS ORDERED: SODIUM CHLORIDE 0.9% 1000ML 1,000 ML IV SCH (04:15)
[2021-10-24] MEDS ORDERED: NO NARCOTICS OR SEDATIVES SCH (04:15)
[2021-10-24] MEDS ORDERED: DC INTRASPINAL MORPHINE SCH (04:15)
--- NOTE | 2021-10-24 06:08 | Obstetrical Progress Note ---
Date of Service <Chary Escobar - Last Filed: 10/24/21 06:41> October 24, 2021 Assessment & Plan <Chary Escobar - Last Filed: 10/24/21 06:41> (1) Status post section: Plan Sarabia has been d/c, do a trial of OOB and ambulation and then progress diet as tolerated <Sherrie Jefferson MD, FACOG - Last Filed: 10/24/21 07:13> (1) Status post section: Subjective <Chary Escobar DO - Last Filed: 10/24/21 06:41> Nancy is a 36 y/o female who is POD #1 following delivery at 39 6/7. She reports feeling well overall this morning. Mild abdominal cramping & pain well managed on analgesics. Just had Sarabia out, has not voided yet. Tolerating fluids overnight and able to ambulate some. Is passing gas, but no bowel movement. Has some persistent lochia with some improvement this morning. Currently breast feeding. Review of Systems Denies fever, chills, sweats Denies shortness of breath, difficulty breathing, chest pain, palpitations, chest pressure. Denies breast pain. Denies dysuria. Denies headache or changes in vision. Physical Exam <Chary Escobar - Last Filed: 10/24/21 06:41> General: Alert, oriented. No acute distress. Cardiac: Regular rate and rhythm, no murmurs/rubs/gallops. Respiratory: Clear to auscultation bilaterally a/p, no wheezes/rales/rhonchi. No increased work of breathing. Symmetrical chest rise. No respiratory distress. Abdomen: Soft, nontender, nondistended. Bowel sounds present. Uterus: Uterine fundus firm, palpable 1 cm below umbilicus. Surgical dressing still in place. Lower Extremities: No lower extremity edema or swelling. No deep calf pain. Minal's negative bilaterally. Results & Data ([facility]) <Chary Escobar DO - Last Filed: 10/24/21 06:41> Vital Signs (Past 12 Hours) Vital Signs Temp Pulse Resp BP Pulse Ox O2 Del Method 10/24/21 05:30 16 95 07/22/22 04:27 20 97 10/24/21 03:30 16 96 10/24/21 02:30 20 94 10/24/21 03:54 36.8 C 100 H 16 125/82 96 Room Air 10/24/21 01:30 18 95 10/24/21 00:30 18 96 10/23/21 23:45 18 95 10/23/21 23:45 Room Air 10/23/21 23:45 36.9 C 106 H 18 128/85 95 Room Air 10/23/21 22:10 16 98 10/23/21 21:10 16 97 10/23/21 22:24 37 C 106 H 16 116/79 98 Room Air 10/23/21 20:10 16 98 10/23/21 19:10 16 92 10/23/21 18:10 16 97 10/23/21 20:00 36.7 C 96 H 16 129/87 93 Room Air 10/23/21 19:14 36.8 C 97 H 16 113/79 92 Room Air <Sherrie Jefferson MD, FACOG - Last Filed: 10/24/21 07:13> Co-Signing Physician Notes Resident Physician Supervision Note: I interviewed and examined the patient. Discussed with Dr. Escobar and agree with findings and plan as documented in the note. Any exceptions or clarifications are listed here: Doing well. PPD 1. Routine care. hgb noted and she is currently asx. Documented By: Sherrie Jefferson MD, FACOG
[2021-10-24 06:12] LABS: Basophils # (auto) 0.02 K/uL (0-0.2); Basophils % (auto) 0.2 %; Eosinophils # (auto) 0.06 K/uL (0-0.50); Eosinophils % (auto) 0.5 %; Hematocrit (blood only) 24.8 % (34.1-44.9); Hemoglobin 8.2 g/dl (12.0-16.0); Immature Granulocytes # (auto) 0.06 K/uL (0.00-0.02); Immature Granulocytes % (auto) 0.5 %; Lymphocytes # (auto) 2.03 K/uL (1.2-3.4); Lymphocytes % (auto) 18.2 %; Mean Corpuscular Hemoglobin 28.4 pg (25.0-34.0); Mean Corpuscular Hgb Conc 33.1 g/dL (32.0-36.0); Mean Corpuscular Volume 85.8 fL (80.0-100.0); Mean Platelet Volume 9.6 fL (9.4-12.3); Monocytes # (auto) 0.85 K/uL (0.24-0.82); Monocytes % (auto) 7.6 %; Neutrophils # (auto) 8.13 K/uL (1.4-6.5); Platelet Count 245 K/uL (130-400); RDW Coefficient of Variation 14.6 % (11.5-14.5); RDW Standard Deviation 45.3 fL (36.4-46.3); Red Blood Count 2.89 M/uL (3.93-5.22); White Blood Count 11.15 K/ul (4.8-10.8)
[2021-10-24] MEDS: DOCUSATE SODIUM 100 MG CAP PO SCH ×2 (07:42→21:30)
[2021-10-24] MEDS: FERROUS SULFATE 325 MG TAB PO SCH (07:42)
[2021-10-24] MEDS: PRENATAL VITAMIN 1 TAB PO SCH (07:42)
[2021-10-24] MEDS: SIMETHICONE 80 MG CHEW PO SCH ×4 (07:42→21:33)
[2021-10-24] MEDS: oxyCODONE/ACETAMINOPHEN 5mg/325mg TAB PO PRN ×4 (08:58→23:47)
[2021-10-24] MEDS: IBUPROFEN 600 MG TAB PO PRN ×3 (13:29→23:48)
[2021-10-24] MEDS ORDERED: bisacodyL 5 MG TABEC PO SCH (20:00)
--- NOTE | 2021-10-25 06:10 | Obstetrical Progress Note ---
Date of Service <Chary SDiane Escobar DO - Last Filed: 10/25/21 06:52> October 25, 2021 Assessment & Plan <Chary SDiane Escobar DO - Last Filed: 10/25/21 06:52> (1) Status post section: Plan continue OOB and ambulation and then progress diet as tolerated <Malachi Pandey MD - Last Filed: 10/25/21 08:05> (1) Status post section: Subjective <Chary S. DO Shawn - Last Filed: 10/25/21 06:52> Nancy is a 36 y/o female who is POD #1 following delivery at 39 6/7. She reports feeling well overall this morning. Mild abdominal cramping & pain well managed on analgesics. Voiding. Tolerating regular diet and able to ambulate some. Is passing gas, but no bowel movement. Has some persistent lochia with some improvement this morning. Currently breast feeding. Review of Systems Denies fever, chills, sweats Denies shortness of breath, difficulty breathing, chest pain, palpitations, chest pressure. Denies breast pain. Denies dysuria. Denies headache or changes in vision. Physical Exam <Chary SDiane Escobar DO - Last Filed: 10/25/21 06:52> General: Alert, oriented. No acute distress. Cardiac: Regular rate and rhythm, no murmurs/rubs/gallops. Respiratory: Clear to auscultation bilaterally a/p, no wheezes/rales/rhonchi. No increased work of breathing. Symmetrical chest rise. No respiratory distress. Abdomen: Soft, nontender, nondistended. Bowel sounds present. Uterus: Uterine fundus firm, palpable 2 cm below umbilicus. Surgical scar clean and healing well. Lower Extremities: No lower extremity edema or swelling. No deep calf pain. Minal's negative bilaterally. Results & Data ([facility]) <Chary Marcie Escobar DO - Last Filed: 10/25/21 06:52> Vital Signs (Past 12 Hours) Vital Signs Temp Pulse Resp BP Pulse Ox O2 Del Method 10/24/21 23:40 Room Air 10/24/21 23:40 36.7 C 116 H 18 111/73 97 Room Air <Malachi Pandey MD - Last Filed: 10/25/21 08:05> Co-Signing Physician Notes Patient seen with resident agree with the above findings and plan. Routine care. Incision healing well without concern.
[2021-10-25] MEDS: oxyCODONE/ACETAMINOPHEN 5mg/325mg TAB PO PRN ×3 (06:22→20:44)
[2021-10-25] MEDS: IBUPROFEN 600 MG TAB PO PRN ×3 (06:22→20:45)
[2021-10-25 08:18] LABS: Hematocrit (blood only) 22.7 % (34.1-44.9); Hemoglobin 7.4 g/dl (12.0-16.0)
[2021-10-25] MEDS: FERROUS SULFATE 325 MG TAB PO SCH (08:47)
[2021-10-25] MEDS: SIMETHICONE 80 MG CHEW PO SCH ×4 (08:47→20:45)
[2021-10-25] MEDS: DOCUSATE SODIUM 100 MG CAP PO SCH ×2 (08:47→20:45)
[2021-10-25] MEDS: PRENATAL VITAMIN 1 TAB PO SCH (08:47)
[2021-10-25] MEDS ORDERED: bisacodyL 10 MG SUPP PR PRN (13:33)
[2021-10-26] MEDS: IBUPROFEN 600 MG TAB PO PRN ×3 (00:54→11:29)
[2021-10-26] MEDS: oxyCODONE/ACETAMINOPHEN 5mg/325mg TAB PO PRN ×3 (00:54→11:28)
--- NOTE | 2021-10-26 05:47 | Obstetrical Progress Note ---
Date of Service October 26, 2021 Assessment & Plan (1) Status post section: Plan stable doing well, desires dc home. hgb reviewed and need for iron pp reviewed. instructions reviewed. pain meds reviewed and checked on papdmp, no issues. f/u 6wk pp check. Day #:: 3 Subjective Ambulation: ambulating normally Voiding: no voiding problems Passing Gas:: Yes Diet Tolerance:: regular diet Lochia:: Small Feeding Type:: breast feeding (and formula) using pain meds prn and helping. ready to go home. Constitutional: + as per Subjective / HPI Physical Exam Constitutional WD/WN, vitals as above Respiratory normal respiratory effort, lungs clear to auscultation Cardiovascular Rate/Rhythm: regular rate and regular rhythm Gastrointestinal (Abdomen) Inspection/Auscultation: abdomen normal to inspection and + abdominal surgical incision (c/d/i with steris) Percussion/Palpation: abdomen soft; abdomen nontender fundus firm 2 cm below umbilicus Musculoskeletal nt calves tr edema Neurologic grossly normal Psychiatric A+Ox3, euthymic affect Results & Data ([facility]) Vital Signs (Past 12 Hours) Vital Signs Temp Pulse Resp BP 10/26/21 00:00 98.1 F 108 H 18 119/67 10/25/21 20:00 98.6 F 116 H 16 130/86
[2021-10-26] MEDS: SIMETHICONE 80 MG CHEW PO SCH (08:28)
[2021-10-26] MEDS: PRENATAL VITAMIN 1 TAB PO SCH (08:29)
[2021-10-26] MEDS: FERROUS SULFATE 325 MG TAB PO SCH (08:29)
[2021-10-26] MEDS: DOCUSATE SODIUM 100 MG CAP PO SCH (08:29)
--- NOTE | 2021-10-28 09:19 | Discharge Summary (DS) ---
DATE OF ADMISSION: 10/22/2021 DATE OF DISCHARGE: 10/26/2021 ADMIT DIAGNOSES: 1. Intrauterine at 39 and 5/7 weeks. 2. Oligohydramnios. 3. GBS positive. 4. Diet-controlled GDM. DISCHARGE DIAGNOSES: 1. Intrauterine at 39 and 5/7 weeks. 2. Oligohydramnios. 3. GBS positive. 4. Diet-controlled GDM. 5. Failure to progress. PROCEDURES: Penicillin prophylaxis for GBS, Pitocin augmentation, epidural and primary low transvers e section. HISTORY: Nancy is a 36-year-old female, 2, para 0-0-1-0, at 39 and 5/7 weeks with an YINA of 10/24/2021, who presented to labor and delivery after an appointment where she had a nonrea ctive NST, BPP was 8/8, the DVP was 2.1 cm. This was her only pocket of fluid, so this was also equa l to her ALEJANDRO. Her was complicated by GDM, AMA, and GBS positive. She noted irregular cont ractions and good movements. She noted some increased mucus discharge since Wednesday, no bloody show. The patient was admitted to labor and delivery for induction of labor for oligohydramnios. For the rest of the patient's detailed history and physical, please see her dictated history and physica l. ASSESSMENT: This is a 39 and 5/7 weeks complicated by GDM, AMA and GBS positive, who prese nted to labor and delivery with oligohydramnios. HOSPITAL COURSE: Penicillin was started for GBS prophylaxis. Cervical balloon was eventually placed and Pitocin augmentation was started. I took over the patient's care on the following morning. At that point in time, she was 7-8 cm, 100% effaced, -1 with lots of molding. She was marcello every 2-3 minutes and MVUs were finally greater than or at 200 since approximately 6:00 a.m., Pitocin was at 24. They had had a hard time getting the patient's contractions even close to adequate until appr oximately 6:00 a.m. heart tones were in the 140s with minimal to moderate variability, small o ccasional accels and occasional variables that were mostly with contractions. So although the fetus w as mostly category 1, it was occasionally category 2 with variables, but overall was tolerating the l abor well with the low fluid. The patient's cervix had been approximately 6-7 cm dilated since late in the evening on the ; however, she had not had really adequate contractions. We had discussed my concerns about this. On exam, I felt she had a pretty narrow pelvis and the baby was still high, with significant molding. I concerned that the baby was not going to fit through this and expressed that to the patient. Rech alfredo at 11 o'clock showed no change in her cervical dilation or station and cervical swelling. She wa s marcello every 2-4 minutes with Pitocin at 24 had been adequate. For the most part with greater than 200 MVUs, but had runs of dysfunctional contractions as well, the fetus was overall still very reassuring, no meconium had been noted. After discussion, we decided to proceed with section for failure to progress. The patient u nderwent a primary low transverse section with an estimated blood loss of 1000 mL to deliver a viable female infant in OP presentation. That was asynclitic with caput on the right side of the s calp. Apgars were 8 and 9. There was some slight meconium fluid noted on entering the uterus. There was normal-appearing uterus, normal right tube and ovary and a streak left ovary noted. At the end o f the procedure, the patient was frog-legged and approximately 300 mL of clot and blood was expressed from the vagina and lower uterine segment. She had 800 mcg of Cytotec placed. She had also receive d IM Methergine, and IV Pitocin making the total blood loss 1000 mL. The patient's postoperative course was uncomplicated. She tolerated a regular diet, ambulated withou t difficulty, passed flatus and tolerated p.o. pain medications. Her discharge H and H was 7.4 and 2 2.7. She did start at 10.6 her hemoglobin and 32.3 for hematocrit. She was tolerating this without difficulty. She will follow up in 6 weeks for a postoperative check. Job ID: [id number]
== END 2021-10-26 12:05 | disposition home or self-care (01) | DRG 787 ==
LOC: OPB 10:06 → 4S1 10:08 → 4E2 10-23 16:08